=== PATIENT | male | born 1970 | race Caucasian/White ===

== ENCOUNTER 2018-08-01 17:39 | Emergency (ER) | payer OTHER ==
[2018-08-01 17:56] VITALS: BP 130/82
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
== END 2018-08-01 20:44 | disposition home or self-care (01) ==
LOC: JD.ED 17:39
DX: S86.812A Strain of other muscle(s) and tendon(s) at lower leg level, left leg, initial encounter (principal); E78.00 Pure hypercholesterolemia, unspecified; I10 Essential (primary) hypertension; F17.210 Nicotine dependence, cigarettes, uncomplicated; Z79.899 Other long term (current) drug therapy; W00.0XXA Fall on same level due to ice and snow, initial encounter
CPT/HCPCS: 99282; 99283

== ENCOUNTER 2024-06-13 02:14 | Emergency (ER) | payer BC ==
[2024-06-13] MEDS: Cyclobenzaprine 10 MG Tab PO ONE (03:09)
[2024-06-13] MEDS: Acetaminophen/oxyCODONE 325-5 MG Tab PO ONE (03:10)
[2024-06-13 03:14] VITALS: BP 107/71; PULSE 72
== END 2024-06-13 03:13 | disposition home or self-care (01) ==
LOC: JD.ED 02:14
DX: M54.6 Pain in thoracic spine (principal); I10 Essential (primary) hypertension; E78.00 Pure hypercholesterolemia, unspecified; F17.210 Nicotine dependence, cigarettes, uncomplicated; Z86.16 Personal history of COVID-19; Z90.49 Acquired absence of other specified parts of digestive tract; Z79.899 Other long term (current) drug therapy
CPT/HCPCS: 99283; A9270; 99284